=== PATIENT | male | born 1975 | race Caucasian/White ===

== ENCOUNTER 2019-06-20 19:36 | Emergency (ER) | payer OTHER ==
[2019-06-20] MEDS ORDERED: AMOX/CLAV 875 MG/125 MG TABLET PO STA (19:55)
--- NOTE | 2019-06-20 19:57 | ED Physician Documentation ---
History of Present Illness - Stated complaint Stated Complaint: LT SIDE EAR/NECK PX - Chief complaint Chief Complaint: Heent - History obtained from History obtained from: Patient - History of Present Illness Timing: How many days ago (2) Pain level max: 7 Pain level now: 6 - Additonal information Additional information: 44-year-old male presents to the emergency department stating that his left ear is been hurting him for 2 days, gradually increasing in pain. Denies any fever. Denies any nasal congestion, sore throat, cough. Nothing makes it better or worse. Review of Systems Constitutional: denies: Fever, Chills Respiratory: denies: Cough GI: denies: Vomiting, Diarrhea Skin: denies: Rash Neurologic: denies: Headache PD PAST MEDICAL HISTORY - Past Medical History Past Medical History: Yes Other Past Medical History: Seasonal allergies - Present Medications Home Medications: Ambulatory Orders Medication Instructions Recorded Confirmed Amox/Clav 875/125 [Augmentin] 1 each PO Q12H #20 tablet 06/20/19 Cetirizine [ZyrTEC] 10 mg PO ONCE 06/20/19 06/20/19 - Allergies Allergies/Adverse Reactions: Allergies Allergy/AdvReac Type Severity Reaction Status Date / Time No Known Drug Allergies Allergy Verified 06/20/19 19:47 - Living Situation Living Arrangement: reports: At home - Social History Does the pt smoke?: Yes Does the pt drink ETOH?: Yes PD ED PE NORMAL - Vitals Vital signs reviewed: Yes - General General: Alert and oriented X 3, No acute distress - HEENT HEENT: Moist mucous membranes, Pharynx benign, Other (Right TM is normal. Left TM is erythematous, dull, bulging with loss of landmarks. Purulent fluid present.) - Neck Neck: Supple, no meningeal sign - Cardiac Cardiac: RRR - Respiratory Respiratory: No respiratory distress, Clear bilaterally - Derm Derm: Warm and dry, No rash - Neuro Neuro: Alert and oriented X 3 Results - Vitals Vitals: Vital Signs - 24 hr 06/20/19 19:43 Temperature 36.9 C Heart Rate 84 Respiratory 16 Rate Blood Pressure 139/81 H O2 Saturation 99 PD MEDICAL DECISION MAKING - ED course Complexity details: considered differential, d/w patient ED course: Patient with a left acute otitis media. Will place on antibiotics for this. He is otherwise well-appearing, nontoxic. Afebrile. Patient counseled regarding signs and symptoms for which I believe and urgent re-evaluation would be necess lew. Patient with good understanding of and agreement to plan and is comfortable going home at this time This document was made in part using voice recognition software. While efforts are made to proofread this document, sound alike and grammatical errors may occur. Departure - Departure Disposition: Home, Self Care Clinical Impression: Left otitis media Qualifiers: Otitis media type: suppurative Chronicity: acute Recurrence: not specified as recurrent Spontaneous tympanic membrane rupture: without spontaneous rupture Qualified Code(s): H66.002 - Acute suppurative otitis media without spontaneous rupture of ear drum, left ear Condition: Good Instructions: ED Otitis Media Acute Adult Follow-Up: your,doctor in 1 week if not better [Other] Prescriptions: Amox/Clav 875/125 [Augmentin] 1 each PO Q12H #20 tablet Comments: Take all antibiotics until gone. Return if you worsen. Follow-up with your doctor as needed for further care.
[2019-06-20 20:05] VITALS: BP 130/79
== END 2019-06-20 20:05 | disposition home or self-care (01) ==
LOC: ED 19:36
DX: H66.002 Acute suppurative otitis media without spontaneous rupture of ear drum, left ear (principal)
CPT/HCPCS: 99282; 99284; A9270

== ENCOUNTER 2019-07-23 10:27 | Emergency (ER) | payer OTHER ==
[2019-07-23 10:40] VITALS: BP 123/83
--- NOTE | 2019-07-23 11:19 | ED Physician Documentation ---
PD HPI SKIN - Stated complaint Stated Complaint: FACE SWELLING - Chief complaint Chief Complaint: Wound - History obtained from History obtained from: Patient - History of Present Illness Timing - onset: How many days ago (2-3) Timing - duration: Days Timing - details: Gradual onset, Still present (much worse today, with facial redness increased/expanded into today.) Location: Face (left cheek with redness now to left lower eyelid border.) Quality / character: Painful, Discolored (red of face) Improved by: No: Benadryl, Steroid cream (he has chronic eczema of arms and hands, and uses Rx triamcinolone and some other cream Rx for that as well.) Associated symptoms: No: Fever, Abd pain, N/V/D Contributing factors: No: Exposed to food, Insect bite /sting, Recent illness Similar symptoms before: Has not had sx before Review of Systems Constitutional: denies: Fever, Chills Ears: denies: Ear pain Throat: denies: Dental pain / toothache, Oral lesions / sores, Sore throat Respiratory: denies: Dyspnea, Cough GI: denies: Abdominal Pain, Nausea, Vomiting, Diarrhea PD PAST MEDICAL HISTORY - Past Medical History Cardiovascular: None Respiratory: None Neuro: None Endocrine/Autoimmune: None - Present Medications Home Medications: Ambulatory Orders Medication Instructions Recorded Confirmed Cetirizine [ZyrTEC] 10 mg PO ONCE 06/20/19 07/23/19 Chlorhexidine Gluconate [Hibiclens] 15 ml TP DAILY #236 ml 07/23/19 Mupirocin 1 applic TP TID #15 g 07/23/19 Sulfamethox/Trimeth 800/160 1 each PO BID #14 tablet 07/23/19 [Bactrim Ds 800/160] dexAMETHasone [Decadron] 4 mg PO DAILY #7 tablet 07/23/19 - Allergies Allergies/Adverse Reactions: Allergies Allergy/AdvReac Type Severity Reaction Status Date / Time cat dander Allergy Mild Itching Verified 07/23/19 10:41 dog dander Allergy Mild Itching Verified 07/23/19 10:41 pollen extracts Allergy Mild Itching Verified 07/23/19 10:41 - Social History Does the pt smoke?: Yes Smoking Status: Current every day smoker Does the pt drink ETOH?: Yes Does the pt have substance abuse?: No PD ED PE NORMAL - Vitals Vital signs reviewed: Yes - General General: Alert and oriented X 3, No acute distress, Well developed/nourished - HEENT HEENT: Pharynx benign, Dentition benign, Other (there is focal swelling with induration left cheek. No rendes/tenderness of the gums nor any pain on teeth occlusion. No fluctuance in cheek. Redness outer cheek with warmth.) - Neck Neck: Supple, no meningeal sign, No adenopathy - Cardiac Cardiac: RRR, No murmur - Respiratory Respiratory: Clear bilaterally - Derm Derm: Normal color, Warm and dry - Extremities Extremities: Other (right forearm with 1 cm area of firm bump without drainage nor warmth. there is skin thickening diffusly arms wrists and lower forearms, without signs of bacterial infection in the excems sores.) - Neuro Neuro: Alert and oriented X 3, No motor deficit, No sensory deficit, Normal speech Results - Vitals Vitals: Vital Signs - 24 hr 07/23/19 10:30 Temperature 36.2 C L Heart Rate 71 Respiratory 18 Rate Blood Pressure 123/83 H O2 Saturation 100 Oxygen O2 Source Room air PD MEDICAL DECISION MAKING - ED course Complexity details: re-evaluated patient, considered differential (lump without fluctuance left cheek. No dental/gum swelling. Presume cellulitis from staph. Has small resolving sore with sweling right forearm and says he gets similar small bumps/red swelling on arms and thighs periodically the past few months. ), d/w patient Departure - Departure Disposition: 01 Home, Self Care Clinical Impression: Facial cellulitis Eczema Qualifiers: Eczema type: unspecified Qualified Code(s): L30.9 - Dermatitis, unspecified Condition: Stable Record reviewed to determine appropriate education?: Yes Instructions: ED Staph Infec Abx Tx Only Prescriptions: Chlorhexidine Gluconate [Hibiclens] 15 ml TP DAILY #236 ml dexAMETHasone [Decadron] 4 mg PO DAILY #7 tablet Mupirocin 1 applic TP TID #15 g Sulfamethox/Trimeth 800/160 [Bactrim Ds 800/160] 1 each PO BID #14 tablet Comments: Suggest to your primary care or referral to dermatology. Use the Bactrim antibiotic twice daily for a week for the current skin infection. This is most likely staph and is been the reason for the recurrent small infections you have had. Use chlorhexidine body wash head to toe in the shower to reduce the amount of germs on the surface to try to prevent further infections. Use mupirocin antibiotic ointment twice daily around the finger beds and nasal passageway and on the current infection area to also reduce further infections. Continue your current eczema treatments. Add Decadron oral steroid daily for a week to try to reduce the current outbreak symptoms a little bit better. Recheck if the facial infection is not improving well over the next 2 to 3 days. Discharge Date/Time: 07/23/19 12:44
[2019-07-23] MEDS ORDERED: CETIRIZINE 10 MG TABLET PO STA (12:10)
[2019-07-23] MEDS ORDERED: DEXAMETHASONE 10 MG/ML VIAL PO STA (12:10)
[2019-07-23] MEDS ORDERED: SULFAMETH/TRIMETH DS 800/160 MG TABLET PO STA (12:10)
[2019-07-23] MEDS ORDERED: CHERRY SYRUP 10 ML UDC PO ONE (12:10)
== END 2019-07-23 12:44 | disposition home or self-care (01) ==
LOC: ED 10:27
DX: L03.211 Cellulitis of face (principal); L30.9 Dermatitis, unspecified; F17.200 Nicotine dependence, unspecified, uncomplicated
CPT/HCPCS: 99284; A9270

== ENCOUNTER 2020-04-09 18:45 | Outpatient (CLI) | payer OTHER | END 2020-04-09 18:46 | disposition home or self-care (01) | LOC: COV 18:45 | PROVIDERS: ATTEND Family Medicine | DX: Z20.822 Contact with and (suspected) exposure to COVID-19 (principal) ==

== ENCOUNTER 2020-05-04 16:09 | Emergency (ER) | payer OTHER ==
--- NOTE | 2020-05-04 16:21 | ED Physician Documentation ---
PD HPI LOWER EXT INJURY - Stated complaint Stated Complaint: LT ANKLE INJ - Chief complaint Chief Complaint: Ext Problem - History obtained from History obtained from: Patient - History of Present Illness Timing - onset: Today - Additional information Additional information: He was at work at a local [employer], he was cleaning a tank and fell about 4 feet and inverted the left ankle. Also has mild left knee pain. He is unable to walk or bear weight. No other injuries. He declines pain medication on initial evaluation. Review of Systems Constitutional: reports: Reviewed and negative Ears: reports: Reviewed and negative Nose: reports: Reviewed and negative Throat: reports: Reviewed and negative Cardiac: reports: Reviewed and negative PD PAST MEDICAL HISTORY - Past Medical History Cardiovascular: None Respiratory: None Neuro: None Endocrine/Autoimmune: None - Present Medications Home Medications: Ambulatory Orders Medication Instructions Recorded Confirmed Cetirizine [ZyrTEC] 10 mg PO ONCE 06/20/19 07/23/19 Chlorhexidine Gluconate [Hibiclens] 15 ml TP DAILY #236 ml 07/23/19 Mupirocin 1 applic TP TID #15 g 07/23/19 Sulfamethox/Trimeth 800/160 1 each PO BID #14 tablet 07/23/19 [Bactrim Ds 800/160] dexAMETHasone [Decadron] 4 mg PO DAILY #7 tablet 07/23/19 HYDROcod/ACETAM 5/325 [Stevenson 5/325] 1 - 2 tab PO Q6H PRN #10 tab 05/04/20 - Allergies Allergies/Adverse Reactions: Allergies Allergy/AdvReac Type Severity Reaction Status Date / Time cat dander Allergy Mild Itching Verified 05/04/20 16:25 dog dander Allergy Mild Itching Verified 05/04/20 16:25 pollen extracts Allergy Mild Itching Verified 05/04/20 16:25 - Social History Does the pt smoke?: Yes Smoking Status: Current every day smoker Does the pt drink ETOH?: Yes Does the pt have substance abuse?: No PD ED PE NORMAL - Vitals Vital signs reviewed: Yes - General General: Alert and oriented X 3, No acute distress - HEENT HEENT: PERRL, EOMI - Extremities Extremities: Other (Mild tenderness along the medial joint line of the left knee without ligamentous laxity. No effusion. Significant tenderness and swelling over the lateral malleolus without medial malleolar or proximal fibular tenderness.) - Neuro Neuro: Alert and oriented X 3, Normal speech Results - Vitals Vitals: Vital Signs - 24 hr 05/04/20 05/04/20 05/04/20 16:16 16:34 17:25 Temperature 36.9 C 36.9 C Heart Rate 85 87 71 Respiratory 16 12 18 Rate Blood Pressure 142/95 H 128/84 H 121/75 O2 Saturation 95 97 99 Oxygen O2 Source Room air - Rads (name of study) XR L ankle and L knee Radiology: EMP read contemporaneously Departure - Departure Disposition: Home, Self Care Clinical Impression: Left ankle sprain Qualifiers: Encounter type: initial encounter Involved ligament of ankle: anterior talofibular ligament Qualified Code(s): S93.492A - Sprain of other ligament of left ankle, initial encounter Left knee sprain Qualifiers: Encounter type: initial encounter Involved ligament of knee: medial collateral ligament Qualified Code(s): S83.412A - Sprain of medial collateral ligament of left knee, initial encounter Condition: Good Record reviewed to determine appropriate education?: Yes Instructions: ED Sprain Ankle W X Ray Prescriptions: HYDROcod/ACETAM 5/325 [Stevenson 5/325] 1 - 2 tab PO Q6H PRN #10 tab PRN Reason: Pain Comments: You may walk and bear weight as tolerated,the air splint can come off for bathing and sleeping. Recheck with your doctor in a week if not better. Discharge Date/Time: 05/04/20 17:25
[2020-05-04] MEDS ORDERED: IBUPROFEN 800 MG TABLET PO STA (17:09)
--- NOTE | 2020-05-04 17:17 | XRAY Report ---
PROCEDURE: Ankle 3 View LT INDICATIONS: ankle inj TECHNIQUE: 3 views of the ankle were acquired. COMPARISON: None FINDINGS: Bones: No fractures or dislocations. Ankle mortise is normally aligned. No suspicious bony lesions . Soft tissues: No tibiotalar joint effusion. Achilles tendon appears normal. Relatively prominent s oft tissue swelling over the lateral malleolus. IMPRESSION: Soft tissue swelling over the lateral malleolus without underlying fracture or malalignm ent. Ligamentous injury could produce this appearance. No fracture. Reviewed by: Neel Rubi MD on 05/04/2020 5:15 PM PST Approved by: Neel Rubi MD on 05/04/2020 5:15 PM PST Station ID: [id number]
--- NOTE | 2020-05-04 17:17 | XRAY Report ---
PROCEDURE: Knee 4 View LT INDICATIONS: knee inj TECHNIQUE: 4 views of left knee(s) were acquired. COMPARISON: None. FINDINGS: Bones: No fractures or dislocations. No suspicious bony lesions. Soft tissues: No joint effusion. No suspicious soft tissue calcifications. IMPRESSION: No trauma found. No effusion or loose body seen. Reviewed by: Neel Rubi MD on 05/04/2020 5:16 PM PST Approved by: Neel Rubi MD on 05/04/2020 5:16 PM PST Station ID: [id number]
[2020-05-04 17:27] VITALS: BP 121/75
== END 2020-05-04 17:25 | disposition home or self-care (01) ==
LOC: ED 16:09
DX: S93.492A Sprain of other ligament of left ankle, initial encounter (principal); S83.412A Sprain of medial collateral ligament of left knee, initial encounter; W17.89XA Other fall from one level to another, initial encounter; Y93.H9 Activity, other involving exterior property and land maintenance, building and construction; Y92.62 Dock or shipyard as the place of occurrence of the external cause; Y99.0 Civilian activity done for income or pay; F17.200 Nicotine dependence, unspecified, uncomplicated
CPT/HCPCS: 73564; 73610; 99283; 99284; A9270

== ENCOUNTER 2020-09-06 11:46 | Outpatient (CLI) | payer OTHER | END 2020-09-06 23:59 | disposition home or self-care (01) | LOC: LAB.N 11:46 | PROVIDERS: ATTEND Family Medicine | DX: L08.9 Local infection of the skin and subcutaneous tissue, unspecified (principal) | CPT/HCPCS: 87070; 87181; 87205 ==

== ENCOUNTER 2022-02-07 08:00 | Outpatient (CLI) | payer BC, OTHER | END 2022-02-07 23:59 | disposition home or self-care (01) | LOC: LAB.N 08:00 | PROVIDERS: ATTEND Nurse Practitioner | DX: L72.3 Sebaceous cyst (principal) | CPT/HCPCS: 87070; 87181; 87205 ==

== ENCOUNTER 2023-05-14 16:30 | Outpatient (CLI) | payer SELFPAY ==
[2023-05-14 20:29] LABS: BASOPHILS # (AUTO) 0.1 10^3/uL (0.0-0.1); BASOPHILS % (AUTO) 0.7 %; EOSINOPHILS # (AUTO) 0.2 10^3/uL (0.0-0.7); EOSINOPHILS % (AUTO) 2.3 %; HCT - HEMATOCRIT 43.9 % (42.0-52.0); HGB - HEMOGLOBIN 14.1 g/dL (14.0-18.0); LYMPHOCYTES # (AUTO) 3.4 10^3/uL (1.5-3.5); LYMPHOCYTES % (AUTO) 35.1 %; MEAN CORPUSCULAR HEMOGLOBIN 31.6 pg (27.0-31.0); MEAN CORPUSCULAR HGB CONC 32.1 g/dL (32.0-36.0); MEAN CORPUSCULAR VOLUME 98.4 fL (80.0-94.0); MEAN PLATELET VOLUME 9.3 fL (7.4-11.4); MONOCYTES % (AUTO) 10.2 %; NEUTROPHILS # (AUTO) 4.9 10^3/uL (1.5-6.6); PLT - PLATELET COUNT 304 10^3/uL (130-450); RED BLOOD COUNT 4.46 10^6/uL (4.70-6.10); RED CELL DISTRIBUTION WIDTH 12.5 % (12.0-15.0); WHITE BLOOD COUNT 9.6 x10^3/uL (4.8-10.8)
[2023-05-14 20:49] LABS: ALBUMIN 4.3 g/dL (3.2-5.5); ALBUMIN/GLOBULIN RATIO 1.4 (1.0-2.2); BILIRUBIN,TOTAL 0.2 mg/dL (0.2-1.0); CALCIUM 9.7 mg/dL (8.5-10.3); CREATININE 0.7 mg/dL (0.6-1.3); POTASSIUM 4.5 mmol/L (3.5-4.5); TOTAL PROTEIN 7.4 g/dL (6.4-8.9)
== END 2023-05-14 16:45 | disposition home or self-care (01) ==
LOC: LAB.N 16:30
PROVIDERS: ATTEND Family Medicine
DX: N62 Hypertrophy of breast (principal); R59.1 Generalized enlarged lymph nodes
CPT/HCPCS: 36415; 80053; 85025; 85651